=== PATIENT | male | born 1980 | race Two or more races ===

== ENCOUNTER 2019-02-08 05:38 | Emergency (ER) | payer BC, MEDICAID ==
[~2019-02-08] VITALS: Ht 188 cm; Wt 120.0 kg
[~2019-02-08 05:38] MED LIST: BACTDS PO; CEPH-443 PO; IBUP800T48 PO; MUPI22OI2 NASAL
[2019-02-08 05:41] VITALS: BP 120/81; PULSE 58; RESP 18; Ht 188 cm; Wt 120.0 kg
[2019-02-08] MEDS ORDERED: SULF1TAB31 PO (06:18)
[2019-02-08] MEDS ORDERED: CEPH-443 PO (06:18)
[2019-02-08] MEDS ORDERED: NAPR-985 PO (06:18)
--- NOTE | 2019-02-08 06:34 | ERD ---
ER Documentation Chief Complaint Chief Complaint left abdominal wall abscess/redness x 3 days HPI 38-year-old male presenting with abdominal pain to the left side x3 days. Last tetanus shot was 5 years ago. She states his daughter to get abscesses and he has had pain at the site. Denies any blood or runny nose. Mild drainage. Has not taken medications for symptoms. Denies medical problems. NKDA. Surgical history denies. Social history denies ROS All systems reviewed and are negative except as per history of present illness. Medications Home Meds Active Scripts Naproxen* (Naprosyn*) 500 Mg Tablet, 500 MG PO BID PRN for PAIN AND/OR INFLAMMATION, #30 TAB Prov:ROSENDO CHRISTIANSON PA-C 02/08/19 Sulfamethoxazole/Trimethoprim* (Bactrim Ds* Tablet) 1 Each Tablet, 1 TAB PO BID, #14 TAB Prov:ROSENDO CHRISTIANSON PA-C 02/08/19 Cephalexin* (Keflex*) 500 Mg Capsule, 500 MG PO QID for 7 Days, CAP Prov:ROSENDO CHRISTIANSON PA-C 02/08/19 Mupirocin* (Bactroban*) 2% -22 Gram Oint...g., 1 APPLIC NASAL BID for 14 Days, EA Prov:CHUCK EDUARDO NP 05/14/16 Sulfamethoxazole-Trimethoprim* (Bactrim* DS) 800-160 Mg Tab, 1 TAB PO BID for 7 Days, TAB Prov:CHUCK EDUARDO NP 05/14/16 Cephalexin* (Keflex*) 500 Mg Capsule, 500 MG PO QID for 7 Days, CAP Prov:CHUCK EDUARDO NP 05/14/16 Ibuprofen* (Motrin*) 800 Mg Tab, 800 MG PO Q6H PRN for PAIN AND OR ELEVATED TEMP, #30 TAB Prov:CHUCK EDUARDO NP 05/14/16 Allergies Allergies: Coded Allergies: No Known Allergy (Unverified , 08/08/15) PMhx/Soc History of Surgery: No Anesthesia Reaction: No Hx Neurological Disorder: No Hx Respiratory Disorders: No Hx Cardiac Disorders: No Hx Psychiatric Problems: No Hx Miscellaneous Medical Probl: No Hx Alcohol Use: No Hx Substance Use: No Hx Tobacco Use: No Smoking Status: Never smoker FmHx Family History: No diabetes, No coronary disease, No other Physical Exam Vitals Vital Signs Date Temp Pulse Resp B/P (MAP) Pulse Ox O2 O2 Flow FiO2 Time Delivery Rate 02/08/19 98.2 58 18 120/81 98 05:41 (94) Physical Exam GENERAL: The patient is well-appearing, well-nourished, in no acute distress CHEST: Clear to auscultation bilaterally. There are no rales, wheezes or rhonchi. HEART: Regular rate and rhythm. No murmurs, clicks, rubs or gallops. ABDOMEN:Soft, nontender and nondistended. Good bowel sounds. No rebound or guarding. No gross peritonitis. No gross organomegaly or masses. SKIN: Erythematous cellulitic region noted to the left abdominal wall with no lymphatic streaking and no fluctuance. Procedures/MDM MDM: 38-year-old male presenting with cellulitic changes to abdomen. Patient is discharged with antibiotics and told to apply warm compress to the affected site. No incision and drainage is indicated at this time. Patient is discharged with strict ER precautions. Patient is told symptoms change or worsen to return immediately to the ER. All questions answered at discharge Departure Diagnosis: Primary Impression: Abscess Condition: Stable Patient Instructions: Abscess, Incision And Drainage Referrals: [facility], [facility] YOU HAVE RECEIVED A MEDICAL SCREENING EXAM AND THE RESULTS INDICATE THAT YOU DO NOT HAVE A CONDITION THAT REQUIRES URGENT TREATMENT IN THE EMERGENCY DEPARTMENT. FURTHER EVALUATION AND TREATMENT OF YOUR CONDITION CAN WAIT UNTIL YOU ARE SEEN IN YOUR DOCTORS OFFICE WITHIN THE NEXT 1-2 DAYS. IT IS YOUR RESPONSIBILITY TO MAKE AN APPOINTMENT FOR FOLOW-UP CARE. IF YOU HAVE A PRIMARY DOCTOR --you should call your primary doctor and schedule an appointment IF YOU DO NOT HAVE A PRIMARY DOCTOR YOU CAN CALL OUR PHYSICIAN REFERRAL HOTLINE AT IF YOU CAN NOT AFFORD TO SEE A PHYSICIAN YOU CAN CHOSE FROM THE FOLLOWING [facility] [id number] [facility] [address] [facility] [address] [facility] [address] [facility] [address] [facility]. [facility] [address] Additional Instructions: FOLLOW UP WITH YOUR PRIMARY CARE PHYSICIAN TOMORROW.Return to this facility if you are not improving as expected. ROSENDO CHRISTIANSON PA-C Feb 08, 2019 06:34
== END 2019-02-08 06:47 | disposition home or self-care (01) ==
LOC: FTE 05:38
DX: L02.211 Cutaneous abscess of abdominal wall (principal)
CPT/HCPCS: 99283